=== PATIENT | female | born 1975 | race Caucasian/White ===

== ENCOUNTER → 2020-01-15 | Outpatient (CLI) | payer OTHER ==
[2020-01-15 04:19] LABS: MEAN CORP HGB 23.2 pg (26-34); RED CELL DISTRIBUTION WIDTH 16.6 % (11.5-14.5)
[2020-01-15 04:50] LABS: CARBON DIOXIDE 27.8 mmol/L (20.0-32)
== END | disposition home or self-care (01) ==
LOC: LAB 03:42 → EEVIPCON 03:42
PROVIDERS: ATTEND Nurse Practitioner Family
DX: Z00.00 Encounter for general adult medical examination without abnormal findings (principal); N95.1 Menopausal and female climacteric states; R53.83 Other fatigue
CPT/HCPCS: 36415; 80053; 80061; 82670; 82672; 84144; 84403; 84436; 84443; 85027

== ENCOUNTER → 2020-03-10 | Outpatient (CLI) | payer OTHER ==
[2020-03-10 21:23] LABS: CALCIUM 8.6 mg/dL (8.4-10.5); CARBON DIOXIDE 26.9 mmol/L (20.0-32)
[2020-03-12 08:13] LABS: ESTRADIOL 18.8 pg/mL (.)
== END | disposition home or self-care (01) ==
LOC: LAB 20:40
PROVIDERS: ATTEND Nurse Practitioner Family
DX: E03.9 Hypothyroidism, unspecified (principal); R53.83 Other fatigue; R53.81 Other malaise
CPT/HCPCS: 36415; 80053; 82670; 82672; 84403; 84436; 84443; 85027

== ENCOUNTER → 2020-06-10 | Outpatient (CLI) | payer OTHER ==
[2020-06-10 00:58] LABS: MEAN CORP HGB 24.9 pg (26-34); RED CELL DISTRIBUTION WIDTH 14.9 % (11.5-14.5)
[2020-06-10 04:02] LABS: CALCIUM 8.6 mg/dL (8.4-10.5); CARBON DIOXIDE 27.2 mmol/L (20.0-32)
== END | disposition home or self-care (01) ==
LOC: LAB 00:44
PROVIDERS: ATTEND Nurse Practitioner Family
DX: R53.83 Other fatigue (principal); R53.81 Other malaise
CPT/HCPCS: 36415; 80053; 82306; 82607; 84436; 84443; 84480; 85027